=== PATIENT | male | born 1980 | race Caucasian/White ===

== ENCOUNTER 2017-08-16 12:44 | Day surgery (SDC) | payer OTHER ==
[2017-08-16] MEDS ORDERED: PROPOFOL 20 ML (16:06)
[2017-08-16] MEDS ORDERED: MIDAZOLAM 1 MG/ML 2 ML INJ (16:07)
== END 2017-08-16 17:16 | disposition home or self-care (01) ==
LOC: GIL 12:44
DX: K29.30 Chronic superficial gastritis without bleeding (principal); K21.9 Gastro-esophageal reflux disease without esophagitis; K44.9 Diaphragmatic hernia without obstruction or gangrene; I10 Essential (primary) hypertension
CPT/HCPCS: 43239; 88305; 88312